=== PATIENT | male | born 1940 | race Caucasian/White ===

== ENCOUNTER → 2017-01-25 | Outpatient (CLI) | payer MEDICARE, OTHER ==
[~2017-01-25] MED LIST: ACTOS30 MG PO; AMOXICILLIN 8751 TAB PO; ASPIRIN E.C. 8181 MG PO; BRILINTA90 MG PO; CARDURA 2MG2 MG PO; DIABETA 2.5MG2.5 MG PO; DIABETA 5MG5 MG/TAB PO; DOXAZOSIN2 MG PO; FLOMAX PO; FLOMAX0.4 MG PO; FLUTICASON0.05 MG/Ac NS; FOLIC ACID0.4 MG PO; GLYBURIDE5 MG PO; GOOD SENSE ASPI81 M1 PO; IRON325 M1 PO; K-1010 MEQ PO; LAMISIL250 MG PO; LASIX20 MG PO; LASIX40 MG PO; LEVOTHYROXIN0.088 MG PO; LIPITOR 40MG TA40 MG PO; METFORMIN500 MG PO; NITROQUICK0.4 MG SL; PRILOSEC 20MG20 MG PO; PRINIVIL20 MG PO; RITE AID ASPIRI81 M1 PO; TOPROL XL 25MG25 MG PO; TYLENOL 325MG325 MG PO; VITAMIN C PURE500 M1 PO; ZOCOR 10MG10 MG PO
== END ==
LOC: LAB 12:20
DX: E11.65 Type 2 diabetes mellitus with hyperglycemia (principal)

== ENCOUNTER → 2017-02-23 | Outpatient (CLI) | payer MEDICARE, OTHER ==
[2015-06-21 10:10] VITALS: BP 125/67
== END ==
LOC: LAB 10:55
DX: Z51.81 Encounter for therapeutic drug level monitoring (principal); Z79.899 Other long term (current) drug therapy

== ENCOUNTER → 2017-04-30 | Outpatient (CLI) | payer MEDICARE, OTHER ==
[2015-06-21 10:10] VITALS: BP 125/67
== END ==
LOC: LAB 11:06
DX: Z51.81 Encounter for therapeutic drug level monitoring (principal); Z79.899 Other long term (current) drug therapy; E11.9 Type 2 diabetes mellitus without complications

== ENCOUNTER → 2017-08-10 | Outpatient (CLI) | payer MEDICARE, OTHER ==
[2015-06-21 10:10] VITALS: BP 125/67
[2017-08-10 11:22] LABS: EOS # 0.3 (0.04-0.40); EOS % 3.8 % (0.0-4.0); HEMATOCRIT 39.3 % (42.0-52.0); HEMOGLOBIN 12.9 g/dL (13.5-18.0); LYMPH# 2.5 (1.50-4.00); MEAN CELL VOLUME 94 fl (78-100); MEAN CORPUSCULAR HEMOGLOBIN 31 pg (27-31); MEAN CORPUSCULAR HGB CONC 33 g/dL (33-37); MEAN PLATELET VOLUME 10.6 fl (7.4-10.4); MONO # 0.6 (0.20-0.80); NEU # 3.3 (1.40-6.50); PLATELET COUNT 177 K/mm3 (130-400); WHITE BLOOD COUNT 6.7 K/mm3 (4.8-10.8)
[2017-08-10 11:43] LABS: ALBUMIN 3.6 g/dL (3.5-5.0); BUN/CREATININE RATIO 32.5 (6.0-26.0); POTASSIUM 4.4 mmol/L (3.6-5.0); TOTAL BILIRUBIN 0.4 mg/dL (0.2-1.3); TOTAL PROTEIN 6.8 g/dL (6.3-8.2)
[2017-08-10 12:40] LABS: ERYTHROCYTE SEDIMENTATION RATE 22 mm/hr (0-20)
[2017-08-10 12:46] LABS: URINE APPEARANCE CLEAR; URINE BILIRUBIN NEGATIVE (NEGATIVE); URINE BLOOD NEGATIVE (NEGATIVE); URINE COLOR YELLOW; URINE GLUCOSE NEGATIVE (NEGATIVE); URINE KETONE NEGATIVE (NEGATIVE); URINE LEUKOCYTE ESTERASE NEGATIVE (NEGATIVE); URINE NITRATE NEGATIVE (NEGATIVE); URINE PROTEIN(semi-quant) TRACE mg/dL (NEGATIVE); URINE UROBILINOGEN NORMAL (NORMAL); URINE WBC 0-1 /hpf (0-3)
[2017-08-10 23:19] LABS: CREATININE OTHER SOURCE 62 mg/dL (())
[2017-08-10 23:28] LABS: TESTOSTERONE 257 ng/dL (221-716)
== END ==
LOC: LAB 11:00
PROVIDERS: Internal Medicine
DX: I10 Essential (primary) hypertension (principal); E11.9 Type 2 diabetes mellitus without complications; Z12.5 Encounter for screening for malignant neoplasm of prostate; Z12.11 Encounter for screening for malignant neoplasm of colon; E78.5 Hyperlipidemia, unspecified; N52.9 Male erectile dysfunction, unspecified; R20.2 Paresthesia of skin; E03.4 Atrophy of thyroid (acquired)

== ENCOUNTER → 2017-08-27 | Outpatient (CLI) | payer MEDICARE, OTHER ==
[2015-06-21 10:10] VITALS: BP 125/67
== END ==
LOC: LAB 11:31
DX: M25.552 Pain in left hip (principal); R93.7 Abnormal findings on diagnostic imaging of other parts of musculoskeletal system

== ENCOUNTER → 2017-11-18 | Outpatient (CLI) | payer MEDICARE, OTHER ==
[2015-06-21 10:10] VITALS: BP 125/67
[2017-11-18 17:49] LABS: BUN/CREATININE RATIO 37.1 (6.0-26.0); CALCIUM 8.9 mg/dL (8.4-10.2); POTASSIUM 4.5 mmol/L (3.6-5.0); TOTAL BILIRUBIN 0.4 mg/dL (0.2-1.3); TOTAL PROTEIN 7.3 g/dL (6.3-8.2)
[2017-11-22 18:02] LABS: TESTOSTERONE 153 ng/dL (221-716)
== END ==
LOC: LAB 17:08
PROVIDERS: Internal Medicine
DX: E11.9 Type 2 diabetes mellitus without complications (principal); I25.5 Ischemic cardiomyopathy; G47.33 Obstructive sleep apnea (adult) (pediatric); N52.9 Male erectile dysfunction, unspecified

== ENCOUNTER → 2017-11-26 | Outpatient (CLI) | payer MEDICARE, OTHER ==
[2015-06-21 10:10] VITALS: BP 125/67
[2017-11-26 10:42] LABS: CALCIUM 8.7 mg/dL (8.4-10.2); POTASSIUM 4.5 mmol/L (3.6-5.0)
== END ==
LOC: LAB 09:25
PROVIDERS: Internal Medicine
DX: I25.5 Ischemic cardiomyopathy (principal); E11.9 Type 2 diabetes mellitus without complications

== ENCOUNTER → 2017-12-24 | Outpatient (CLI) | payer MEDICARE, OTHER ==
[2015-06-21 10:10] VITALS: BP 125/67
[2017-12-24 11:21] LABS: BUN/CREATININE RATIO 31.6 (6.0-26.0); CALCIUM 8.8 mg/dL (8.4-10.2); POTASSIUM 4.6 mmol/L (3.6-5.0)
== END ==
LOC: LAB 09:30
PROVIDERS: Internal Medicine
DX: I25.5 Ischemic cardiomyopathy (principal); E11.9 Type 2 diabetes mellitus without complications

== ENCOUNTER → 2018-01-04 | Outpatient (CLI) | payer MEDICARE, OTHER ==
[2015-06-21 10:10] VITALS: BP 125/67
[2018-01-04 15:41] LABS: EOS # 0.2 (0.04-0.40); EOS % 3.2 % (0.0-4.0); HEMATOCRIT 40.3 % (42.0-52.0); LYMPH# 2.5 (1.50-4.00); MEAN CELL VOLUME 96 fl (78-100); MEAN CORPUSCULAR HEMOGLOBIN 31 pg (27-31); MEAN CORPUSCULAR HGB CONC 32 g/dL (33-37); MEAN PLATELET VOLUME 11.2 fl (7.4-10.4); MONO # 0.7 (0.20-0.80); NEU # 3.9 (1.40-6.50); PLATELET COUNT 150 K/mm3 (130-400); RED BLOOD COUNT 4.19 M/mm3 (4.20-5.60); RED CELL DISTRIBUTION WIDTH 13.9 % (11.5-14.5); WHITE BLOOD COUNT 7.4 K/mm3 (4.8-10.8)
[2018-01-04 15:53] LABS: BUN/CREATININE RATIO 36.1 (6.0-26.0); CALCIUM 8.8 mg/dL (8.4-10.2); POTASSIUM 4.6 mmol/L (3.6-5.0)
== END ==
LOC: LAB 15:15
PROVIDERS: Nurse Practitioner Family
DX: M79.605 Pain in left leg (principal); L03.116 Cellulitis of left lower limb

== ENCOUNTER → 2018-02-01 | Outpatient (CLI) | payer MEDICARE, OTHER ==
[2015-06-21 10:10] VITALS: BP 125/67
[2018-02-01 16:05] LABS: EOS # 0.1 (0.04-0.40); EOS % 1.7 % (0.0-4.0); HEMATOCRIT 39.3 % (42.0-52.0); HEMOGLOBIN 12.5 g/dL (13.5-18.0); LYMPH# 3.8 (1.50-4.00); MEAN CELL VOLUME 97 fl (78-100); MEAN CORPUSCULAR HEMOGLOBIN 31 pg (27-31); MEAN CORPUSCULAR HGB CONC 32 g/dL (33-37); MEAN PLATELET VOLUME 11.8 fl (7.4-10.4); MONO # 0.8 (0.20-0.80); NEU # 3.6 (1.40-6.50); PLATELET COUNT 221 K/mm3 (130-400); RED BLOOD COUNT 4.06 M/mm3 (4.20-5.60); RED CELL DISTRIBUTION WIDTH 14.5 % (11.5-14.5); WHITE BLOOD COUNT 8.4 K/mm3 (4.8-10.8)
[2018-02-01 16:08] LABS: BUN/CREATININE RATIO 43.6 (6.0-26.0); CALCIUM 8.9 mg/dL (8.4-10.2); POTASSIUM 4.9 mmol/L (3.6-5.0)
== END ==
LOC: LAB 10:23
PROVIDERS: Internal Medicine
DX: M79.605 Pain in left leg (principal); L03.116 Cellulitis of left lower limb; I25.5 Ischemic cardiomyopathy

== ENCOUNTER → 2018-02-10 | Outpatient (CLI) | payer MEDICARE, OTHER ==
[2015-06-21 10:10] VITALS: BP 125/67
[2018-02-10 10:32] LABS: BUN/CREATININE RATIO 37.9 (6.0-26.0); CALCIUM 8.9 mg/dL (8.4-10.2)
== END ==
LOC: LAB 09:58
PROVIDERS: Internal Medicine
DX: I25.5 Ischemic cardiomyopathy (principal); E11.9 Type 2 diabetes mellitus without complications

== ENCOUNTER → 2018-02-22 | Outpatient (CLI) | payer MEDICARE, OTHER ==
[2015-06-21 10:10] VITALS: BP 125/67
[2018-02-22 10:05] LABS: EOS # 0.3 (0.04-0.40); EOS % 3.1 % (0.0-4.0); HEMATOCRIT 37.8 % (42.0-52.0); HEMOGLOBIN 12.3 g/dL (13.5-18.0); LYMPH# 2.8 (1.50-4.00); MEAN CELL VOLUME 96 fl (78-100); MEAN CORPUSCULAR HEMOGLOBIN 31 pg (27-31); MEAN CORPUSCULAR HGB CONC 33 g/dL (33-37); MEAN PLATELET VOLUME 10.2 fl (7.4-10.4); MONO # 0.7 (0.20-0.80); NEU # 4.5 (1.40-6.50); PLATELET COUNT 174 K/mm3 (130-400); RED BLOOD COUNT 3.92 M/mm3 (4.20-5.60); RED CELL DISTRIBUTION WIDTH 14.8 % (11.5-14.5); WHITE BLOOD COUNT 8.3 K/mm3 (4.8-10.8)
[2018-02-22 10:20] LABS: ALBUMIN 3.8 g/dL (3.5-5.0); CALCIUM 8.7 mg/dL (8.4-10.2); POTASSIUM 4.8 mmol/L (3.6-5.0); TOTAL BILIRUBIN 0.3 mg/dL (0.2-1.3); TOTAL PROTEIN 7.1 g/dL (6.3-8.2)
[2018-02-22 11:07] LABS: ERYTHROCYTE SEDIMENTATION RATE 22 mm/hr (0-20)
[2018-02-22 23:13] LABS: FOLLICLE STIMULATING HORMONE 13.7 mIU/mL (1.0-12.0); LUTENIZING HORMONE 10.9 mIU/mL (0.6-12.1); PROLACTIN 8.8 ng/mL (3.5-19.4); TESTOSTERONE 177 ng/dL (221-716)
== END ==
LOC: LAB 09:19
PROVIDERS: Internal Medicine
DX: E11.9 Type 2 diabetes mellitus without complications (principal); I25.10 Atherosclerotic heart disease of native coronary artery without angina pectoris; E29.1 Testicular hypofunction; R20.2 Paresthesia of skin

== ENCOUNTER → 2018-04-12 | Day surgery (SDC) | payer MEDICARE, OTHER ==
[2015-06-21 10:10] VITALS: BP 125/67
== END ==
LOC: MSO 07:32
DX: Z12.11 Encounter for screening for malignant neoplasm of colon (principal); Z80.0 Family history of malignant neoplasm of digestive organs; I11.0 Hypertensive heart disease with heart failure; I50.20 Unspecified systolic (congestive) heart failure; I25.2 Old myocardial infarction; Z79.82 Long term (current) use of aspirin; Z79.84 Long term (current) use of oral hypoglycemic drugs; E11.9 Type 2 diabetes mellitus without complications; Z79.899 Other long term (current) drug therapy; N40.0 Benign prostatic hyperplasia without lower urinary tract symptoms
CPT/HCPCS: G0105; 00812; J2704; J7030

== ENCOUNTER → 2018-05-10 | Outpatient (CLI) | payer MEDICARE, OTHER ==
[2015-06-21 10:10] VITALS: BP 125/67
== END ==
LOC: RAD 15:25
DX: M54.17 Radiculopathy, lumbosacral region (principal); M48.07 Spinal stenosis, lumbosacral region; M51.86 Other intervertebral disc disorders, lumbar region; M47.895 Other spondylosis, thoracolumbar region

== ENCOUNTER 2018-05-23 11:00 | Emergency (ER) | payer MEDICARE, OTHER ==
[~2018-05-23] VITALS: Ht 177.8 cm; Wt 136.4 kg
[~2018-05-23 11:00] MED LIST changes: -GLIMEPIRIDE4 MG PO; -METFORMIN ER500 MG PO; -MIRALAX 255 GM255 GM PO; -NAPROXEN375 M1 PO; -NORCO 325 MG-51 TA1 PO; -ZESTRIL5 M1 PO
[2018-05-23] MEDS ORDERED: GLIMEPIRIDE4 MG PO (11:12)
[2018-05-23] MEDS ORDERED: METFORMIN ER500 MG PO (11:12)
[2018-05-23] MEDS ORDERED: ZESTRIL5 M1 PO (11:13)
[2018-05-23] MEDS ORDERED: NAPROXEN375 M1 PO (11:14)
[2018-05-23] MEDS ORDERED: MIRALAX 255 GM255 GM PO (12:36)
[2018-05-23] MEDS ORDERED: NORCO 325 MG-51 TA1 PO (12:36)
[2018-05-23 12:47] VITALS: BP 159/66
== END 2018-05-23 12:41 | disposition home or self-care (01) ==
LOC: ED 11:00
DX: M48.061 Spinal stenosis, lumbar region without neurogenic claudication (principal); M54.16 Radiculopathy, lumbar region; M62.830 Muscle spasm of back; E11.9 Type 2 diabetes mellitus without complications; Z79.84 Long term (current) use of oral hypoglycemic drugs; I11.0 Hypertensive heart disease with heart failure; I50.9 Heart failure, unspecified; E78.5 Hyperlipidemia, unspecified; Z79.82 Long term (current) use of aspirin; Z79.899 Other long term (current) drug therapy
CPT/HCPCS: J2270

== ENCOUNTER → 2018-05-23 | Outpatient (CLI) | payer MEDICARE, OTHER ==
[~2018-05-23] MED LIST changes: +GLIMEPIRIDE4 MG PO; +METFORMIN ER500 MG PO; +MIRALAX 255 GM255 GM PO; +NAPROXEN375 M1 PO; +NORCO 325 MG-51 TA1 PO; +ZESTRIL5 M1 PO
[2018-05-23 11:08] VITALS: BP 197/84
[2018-05-23 12:04] LABS: BUN/CREATININE RATIO 28.3 (6.0-26.0); CALCIUM 9.1 mg/dL (8.4-10.2); POTASSIUM 5.3 mmol/L (3.6-5.0)
== END ==
LOC: LAB 11:00
PROVIDERS: Nurse Practitioner Primary Care
DX: E11.9 Type 2 diabetes mellitus without complications (principal); I25.5 Ischemic cardiomyopathy

== ENCOUNTER → 2018-06-23 | Outpatient (CLI) | payer MEDICARE, OTHER ==
[~2018-06-23] MED LIST changes: +GLIMEPIRIDE4 MG PO; +METFORMIN ER500 MG PO; +MIRALAX 255 GM255 GM PO; +NAPROXEN375 M1 PO; +NORCO 325 MG-51 TA1 PO; +ZESTRIL5 M1 PO
== END ==
LOC: RAD 10:21
DX: M79.662 Pain in left lower leg (principal); R22.42 Localized swelling, mass and lump, left lower limb

== ENCOUNTER → 2018-07-01 | Outpatient (CLI) | payer MEDICARE, OTHER ==
[2018-07-01 11:47] LABS: EOS # 0.3 (0.04-0.40); HEMATOCRIT 31.9 % (42.0-52.0); LYMPH# 1.4 (1.50-4.00); MEAN CELL VOLUME 98 fl (78-100); MEAN CORPUSCULAR HEMOGLOBIN 31 pg (27-31); MEAN CORPUSCULAR HGB CONC 31 g/dL (33-37); MEAN PLATELET VOLUME 9.6 fl (7.4-10.4); MONO # 0.6 (0.20-0.80); NEU # 4.3 (1.40-6.50); PLATELET COUNT 259 K/mm3 (130-400); RED BLOOD COUNT 3.26 M/mm3 (4.20-5.60); RED CELL DISTRIBUTION WIDTH 14.6 % (11.5-14.5); WHITE BLOOD COUNT 6.7 K/mm3 (4.8-10.8)
[2018-07-01 12:01] LABS: ALBUMIN 3.4 g/dL (3.5-5.0); POTASSIUM 4.6 mmol/L (3.6-5.0); TOTAL BILIRUBIN 0.6 mg/dL (0.2-1.3); TOTAL PROTEIN 6.3 g/dL (6.3-8.2)
== END ==
LOC: LAB 11:33
PROVIDERS: Physician Assistant
DX: L03.116 Cellulitis of left lower limb (principal)

== ENCOUNTER → 2018-10-11 | Outpatient (CLI) | payer MEDICARE, OTHER ==
[2018-10-11 11:22] LABS: ALBUMIN 3.9 g/dL (3.5-5.0); CALCIUM 9.2 mg/dL (8.4-10.2); POTASSIUM 4.2 mmol/L (3.6-5.0); TOTAL BILIRUBIN 0.3 mg/dL (0.2-1.3); TOTAL PROTEIN 6.7 g/dL (6.3-8.2)
[2018-10-11 11:23] LABS: EOS # 0.6 (0.04-0.40); HEMATOCRIT 39.7 % (42.0-52.0); HEMOGLOBIN 12.5 g/dL (13.5-18.0); LYMPH# 2.7 (1.50-4.00); MEAN CELL VOLUME 92 fl (78-100); MEAN CORPUSCULAR HEMOGLOBIN 29 pg (27-31); MEAN CORPUSCULAR HGB CONC 32 g/dL (33-37); MEAN PLATELET VOLUME 10.8 fl (7.4-10.4); MONO # 0.7 (0.20-0.80); NEU # 3.4 (1.40-6.50); PLATELET COUNT 232 K/mm3 (130-400); RED BLOOD COUNT 4.34 M/mm3 (4.20-5.60); RED CELL DISTRIBUTION WIDTH 15.1 % (11.5-14.5); WHITE BLOOD COUNT 7.4 K/mm3 (4.8-10.8)
[2018-10-11 11:57] LABS: EOS % 7.8 % (0.0-4.0)
[2018-10-11 12:29] LABS: ERYTHROCYTE SEDIMENTATION RATE 22 mm/hr (0-20)
== END ==
LOC: LAB 10:50
PROVIDERS: Internal Medicine
DX: I50.20 Unspecified systolic (congestive) heart failure (principal); E11.9 Type 2 diabetes mellitus without complications; G47.33 Obstructive sleep apnea (adult) (pediatric)

== ENCOUNTER → 2018-10-27 | Outpatient (CLI) | payer MEDICARE, OTHER ==
[2018-10-27 14:30] LABS: HEMOGLOBIN 13.1 g/dL (13.5-18.0); MEAN CELL VOLUME 91 fl (78-100); MEAN CORPUSCULAR HEMOGLOBIN 29 pg (27-31); MEAN CORPUSCULAR HGB CONC 32 g/dL (33-37); MEAN PLATELET VOLUME 10.7 fl (7.4-10.4); PLATELET COUNT 135 K/mm3 (130-400); RED BLOOD COUNT 4.52 M/mm3 (4.20-5.60); RED CELL DISTRIBUTION WIDTH 17.2 % (11.5-14.5); WHITE BLOOD COUNT 12.5 K/mm3 (4.8-10.8)
[2018-10-27 14:37] LABS: URINE APPEARANCE CLOUDY; URINE BILIRUBIN NEGATIVE (NEGATIVE); URINE BLOOD 50 ery/uL (NEGATIVE); URINE COLOR YELLOW; URINE GLUCOSE NEGATIVE (NEGATIVE); URINE KETONE NEGATIVE (NEGATIVE); URINE LEUKOCYTE ESTERASE 2+ (NEGATIVE); URINE NITRATE POSITIVE (NEGATIVE); URINE PROTEIN(semi-quant) 2+ mg/dL (NEGATIVE); URINE UROBILINOGEN NORMAL (NORMAL)
[2018-10-27 14:38] LABS: URINE WBC >50 /hpf (0-3)
[2018-10-27 14:39] LABS: ALBUMIN 3.8 g/dL (3.5-5.0); CALCIUM 8.9 mg/dL (8.4-10.2); POTASSIUM 4.7 mmol/L (3.6-5.0); TOTAL BILIRUBIN 0.5 mg/dL (0.2-1.3)
[2018-10-27 14:49] LABS: BAND 8 % (0-10); LYMPHOCYTE 11 % (20-51); MONOCYTE 3 % (3-10); NEUTROPHILS 78 % (42-75); OVALOCYTES 1+
== END ==
LOC: LAB 14:18
PROVIDERS: Physician Assistant
DX: J06.9 Acute upper respiratory infection, unspecified (principal); N39.0 Urinary tract infection, site not specified; B99.9 Unspecified infectious disease; J02.9 Acute pharyngitis, unspecified; R05 Cough; R50.9 Fever, unspecified; R39.11 Hesitancy of micturition; R30.0 Dysuria

== ENCOUNTER → 2019-03-06 | Outpatient (CLI) | payer MEDICARE, OTHER ==
[2019-03-06 12:05] LABS: EOS # 0.3 (0.04-0.40); EOS % 3.5 % (0.0-4.0); HEMATOCRIT 39.8 % (42.0-52.0); HEMOGLOBIN 12.5 g/dL (13.5-18.0); LYMPH# 2.1 (1.50-4.00); MEAN CELL VOLUME 95 fl (78-100); MEAN CORPUSCULAR HEMOGLOBIN 30 pg (27-31); MEAN CORPUSCULAR HGB CONC 31 g/dL (33-37); MEAN PLATELET VOLUME 9.9 fl (7.4-10.4); MONO # 0.6 (0.20-0.80); NEU # 4.6 (1.40-6.50); PLATELET COUNT 237 K/mm3 (130-400); RED BLOOD COUNT 4.19 M/mm3 (4.20-5.60); RED CELL DISTRIBUTION WIDTH 13.2 % (11.5-14.5); WHITE BLOOD COUNT 7.6 K/mm3 (4.8-10.8)
[2019-03-06 12:58] LABS: ALBUMIN 3.8 g/dL (3.4-4.8); CALCIUM 9.8 mg/dL (8.8-10.0); TOTAL BILIRUBIN 0.2 mg/dL (0.2-1.2); TOTAL PROTEIN 7.1 g/dL (6.2-8.1)
== END ==
LOC: LAB 11:45
PROVIDERS: Internal Medicine
DX: E11.9 Type 2 diabetes mellitus without complications (principal); I25.5 Ischemic cardiomyopathy; E03.9 Hypothyroidism, unspecified

== ENCOUNTER → 2019-06-20 | Outpatient (CLI) | payer MEDICARE, OTHER ==
[2019-06-20 11:55] LABS: EOS # 0.5 (0.04-0.40); HEMATOCRIT 40.9 % (42.0-52.0); HEMOGLOBIN 13.2 g/dL (13.5-18.0); LYMPH# 2.5 (1.50-4.00); MEAN CELL VOLUME 96 fl (78-100); MEAN CORPUSCULAR HEMOGLOBIN 31 pg (27-31); MEAN CORPUSCULAR HGB CONC 32 g/dL (33-37); MEAN PLATELET VOLUME 9.8 fl (7.4-10.4); MONO # 0.7 (0.20-0.80); NEU # 4.2 (1.40-6.50); PLATELET COUNT 191 K/mm3 (130-400); RED BLOOD COUNT 4.27 M/mm3 (4.20-5.60); RED CELL DISTRIBUTION WIDTH 14.4 % (11.5-14.5)
[2019-06-20 11:59] LABS: EOS % 6.5 % (0.0-4.0)
[2019-06-20 12:03] LABS: ALBUMIN 3.9 g/dL (3.4-4.8)
[2019-06-20 12:04] LABS: POTASSIUM 4.8 mmol/L (3.5-5.1)
[2019-06-20 12:05] LABS: CALCIUM 8.9 mg/dL (8.3-10.5)
[2019-06-20 12:08] LABS: TOTAL BILIRUBIN 0.3 mg/dL (0.2-1.2)
== END ==
LOC: LAB 11:39
PROVIDERS: Internal Medicine
DX: E11.9 Type 2 diabetes mellitus without complications (principal); I25.5 Ischemic cardiomyopathy; E03.9 Hypothyroidism, unspecified

== ENCOUNTER 2019-08-04 10:55 | Emergency (ER) | payer MEDICARE, OTHER ==
[2019-08-04] MEDS ORDERED: ZOLPIDEM TART10 MG PO (11:04)
[2019-08-04] MEDS ORDERED: FUROSEMIDE40 MG (11:05)
[2019-08-04] MEDS ORDERED: METOPROLOL SUCC50 M1 PO (11:06)
[2019-08-04] MEDS ORDERED: GLIMEPIRIDE1 MG PO (11:07)
[2019-08-04] MEDS ORDERED: GLUCOPHAGE PO (11:07)
[2019-08-04 11:42] LABS: EOS # 0.6 (0.04-0.40); EOS % 7.8 % (0.0-4.0); HEMATOCRIT 40.2 % (42.0-52.0); HEMOGLOBIN 12.8 g/dL (13.5-18.0); LYMPH# 2.3 (1.50-4.00); MEAN CELL VOLUME 95 fl (78-100); MEAN CORPUSCULAR HEMOGLOBIN 30 pg (27-31); MEAN CORPUSCULAR HGB CONC 32 g/dL (33-37); MEAN PLATELET VOLUME 9.8 fl (7.4-10.4); MONO # 0.8 (0.20-0.80); PLATELET COUNT 208 K/mm3 (130-400); RED BLOOD COUNT 4.22 M/mm3 (4.20-5.60); RED CELL DISTRIBUTION WIDTH 13.6 % (11.5-14.5); WHITE BLOOD COUNT 7.8 K/mm3 (4.8-10.8)
[2019-08-04 11:56] LABS: ALBUMIN 3.7 g/dL (3.4-4.8); POTASSIUM 4.3 mmol/L (3.5-5.1)
[2019-08-04 12:00] LABS: TOTAL BILIRUBIN 0.2 mg/dL (0.2-1.2)
[2019-08-04] MEDS ORDERED: ZITHROMAX 250M250 MG PO (12:18)
[2019-08-04] MEDS ORDERED: MUCINEX DM 60 M1 TER PO (12:18)
[2019-08-04] MEDS ORDERED: CEFDINIR300 MG PO (12:18)
[2019-08-04 12:34] VITALS: BP 127/76
== END 2019-08-04 12:23 | disposition home or self-care (01) ==
LOC: ED 10:55
PROVIDERS: Nurse Practitioner Primary Care
DX: J18.9 Pneumonia, unspecified organism (principal); I11.0 Hypertensive heart disease with heart failure; I50.9 Heart failure, unspecified; I25.2 Old myocardial infarction; I25.10 Atherosclerotic heart disease of native coronary artery without angina pectoris; E11.42 Type 2 diabetes mellitus with diabetic polyneuropathy; Z79.84 Long term (current) use of oral hypoglycemic drugs; Z79.82 Long term (current) use of aspirin; Z98.890 Other specified postprocedural states

== ENCOUNTER 2019-11-03 10:13 | Emergency (ER) | payer MEDICARE, OTHER ==
[~2019-11-03 10:13] MED LIST changes: +CEFDINIR300 MG PO; +FUROSEMIDE40 MG; +GLIMEPIRIDE1 MG PO; +GLUCOPHAGE PO; +METOPROLOL SUCC50 M1 PO; +MUCINEX DM 60 M1 TER PO; +ZITHROMAX 250M250 MG PO; +ZOLPIDEM TART10 MG PO
[2019-11-03 10:46] LABS: ALBUMIN 3.7 g/dL (3.4-4.8)
[2019-11-03 10:47] LABS: POTASSIUM 4.4 mmol/L (3.5-5.1)
[2019-11-03 10:48] LABS: CALCIUM 8.9 mg/dL (8.3-10.5)
[2019-11-03 10:49] LABS: TOTAL PROTEIN 6.7 g/dL (6.2-8.1)
[2019-11-03 10:51] LABS: TOTAL BILIRUBIN 0.6 mg/dL (0.2-1.2)
[2019-11-03 10:55] LABS: EOS # 0.5 (0.04-0.40); EOS % 5.2 % (0.0-4.0); HEMOGLOBIN 12.8 g/dL (13.5-18.0); LYMPH# 1.9 (1.50-4.00); MEAN CELL VOLUME 96 fl (78-100); MEAN CORPUSCULAR HEMOGLOBIN 30 pg (27-31); MEAN CORPUSCULAR HGB CONC 31 g/dL (33-37); MEAN PLATELET VOLUME 10.6 fl (7.4-10.4); MONO # 0.8 (0.20-0.80); NEU # 6.7 (1.40-6.50); PLATELET COUNT 191 K/mm3 (130-400); RED BLOOD COUNT 4.27 M/mm3 (4.20-5.60); RED CELL DISTRIBUTION WIDTH 13.8 % (11.5-14.5)
[2019-11-03] MEDS ORDERED: IPRATROPIUM BROM3 M1 IH (11:16)
[2019-11-03] MEDS ORDERED: PREDNISONE20 M1 PO (11:16)
[2019-11-03] MEDS ORDERED: ROBITUSSIN30 MG/5 ML PO (11:16)
[2019-11-03] MEDS ORDERED: CEFDINIR300 MG PO (11:16)
[2019-11-03 11:23] VITALS: BP 135/86
== END 2019-11-03 11:24 | disposition home or self-care (01) ==
LOC: ED 10:13
PROVIDERS: Nurse Practitioner Primary Care
DX: J20.9 Acute bronchitis, unspecified (principal); I11.0 Hypertensive heart disease with heart failure; I50.9 Heart failure, unspecified; I25.10 Atherosclerotic heart disease of native coronary artery without angina pectoris; I25.2 Old myocardial infarction; E11.9 Type 2 diabetes mellitus without complications; E78.5 Hyperlipidemia, unspecified; J44.9 Chronic obstructive pulmonary disease, unspecified; E03.9 Hypothyroidism, unspecified; Z79.82 Long term (current) use of aspirin; Z79.84 Long term (current) use of oral hypoglycemic drugs; Z95.5 Presence of coronary angioplasty implant and graft

== ENCOUNTER → 2019-12-19 | Outpatient (CLI) | payer MEDICARE, OTHER ==
[~2019-12-19] MED LIST changes: +IPRATROPIUM BROM3 M1 IH; +PREDNISONE20 M1 PO; +ROBITUSSIN30 MG/5 ML PO
[2019-12-19 11:29] LABS: EOS # 0.2 (0.04-0.40); EOS % 3.1 % (0.0-4.0); HEMATOCRIT 41.7 % (42.0-52.0); HEMOGLOBIN 13.1 g/dL (13.5-18.0); LYMPH# 2.1 (1.50-4.00); MEAN CELL VOLUME 96 fl (78-100); MEAN CORPUSCULAR HEMOGLOBIN 30 pg (27-31); MEAN CORPUSCULAR HGB CONC 31 g/dL (33-37); MEAN PLATELET VOLUME 10.3 fl (7.4-10.4); MONO # 0.5 (0.20-0.80); NEU # 4.7 (1.40-6.50); PLATELET COUNT 214 K/mm3 (130-400); RED BLOOD COUNT 4.36 M/mm3 (4.20-5.60); RED CELL DISTRIBUTION WIDTH 14.1 % (11.5-14.5); WHITE BLOOD COUNT 7.6 K/mm3 (4.8-10.8)
[2019-12-19 11:55] LABS: ALBUMIN 3.9 g/dL (3.4-4.8); POTASSIUM 4.3 mmol/L (3.5-5.1)
[2019-12-19 11:56] LABS: CALCIUM 9.2 mg/dL (8.3-10.5)
[2019-12-19 11:58] LABS: TOTAL PROTEIN 6.7 g/dL (6.2-8.1)
[2019-12-19 12:00] LABS: TOTAL BILIRUBIN 0.4 mg/dL (0.2-1.2)
[2019-12-19 12:04] LABS: MAGNESIUM 1.58 mg/dL (1.60-2.60)
== END ==
LOC: LAB 11:14
PROVIDERS: Internal Medicine
DX: E11.9 Type 2 diabetes mellitus without complications (principal); I25.5 Ischemic cardiomyopathy; E03.9 Hypothyroidism, unspecified; I50.22 Chronic systolic (congestive) heart failure

== ENCOUNTER → 2022-03-26 | Outpatient (CLI) | payer MEDICARE, OTHER, MEDICAID ==
[2022-03-26 12:42] LABS: BASO # 0.05 K/mm3 (0.02-0.10); EOS # 0.35 K/mm3 (0.04-0.40); EOS % 4.5 % (0.0-4.0); HEMATOCRIT 39.6 % (42.0-52.0); HEMOGLOBIN 12.7 g/dL (13.5-18.0); LYMPH# 2.21 K/mm3 (1.50-4.00); MEAN CELL VOLUME 96 fl (78-100); MEAN CORPUSCULAR HEMOGLOBIN 31 pg (27-31); MEAN CORPUSCULAR HGB CONC 32 g/dL (33-37); MEAN PLATELET VOLUME 9.2 fl (7.4-10.4); MONO # 0.67 K/mm3 (0.20-0.80); PLATELET COUNT 224 K/mm3 (130-400); RED BLOOD COUNT 4.11 M/mm3 (4.20-5.60); RED CELL DISTRIBUTION WIDTH 13.7 % (11.5-14.5); WHITE BLOOD COUNT 7.7 K/mm3 (4.8-10.8)
[2022-03-26 12:57] LABS: ALBUMIN 3.9 g/dL (3.4-4.8)
[2022-03-26 12:58] LABS: POTASSIUM 4.2 mmol/L (3.5-5.1)
[2022-03-26 12:59] LABS: CALCIUM 9.2 mg/dL (8.3-10.5)
[2022-03-26 13:02] LABS: TOTAL BILIRUBIN 0.3 mg/dL (0.2-1.2)
[2022-03-26 13:07] LABS: MAGNESIUM 2.14 mg/dL (1.60-2.60)
== END ==
LOC: LAB 12:22
PROVIDERS: Internal Medicine
DX: I50.22 Chronic systolic (congestive) heart failure (principal); M54.16 Radiculopathy, lumbar region; E11.9 Type 2 diabetes mellitus without complications; N40.1 Benign prostatic hyperplasia with lower urinary tract symptoms; E03.4 Atrophy of thyroid (acquired)

== ENCOUNTER → 2022-06-19 | Outpatient (CLI) | payer MEDICARE, OTHER, MEDICAID ==
[2022-06-19 13:37] LABS: BASO # 0.03 K/mm3 (0.02-0.10); EOS # 0.04 K/mm3 (0.04-0.40); EOS % 0.4 % (0.0-4.0); HEMATOCRIT 38.8 % (42.0-52.0); HEMOGLOBIN 12.6 g/dL (13.5-18.0); LYMPH# 1.34 K/mm3 (1.50-4.00); MEAN CELL VOLUME 92 fl (78-100); MEAN CORPUSCULAR HEMOGLOBIN 30 pg (27-31); MEAN CORPUSCULAR HGB CONC 33 g/dL (33-37); MEAN PLATELET VOLUME 9.7 fl (7.4-10.4); MONO # 0.96 K/mm3 (0.20-0.80); NEU # 8.47 K/mm3 (1.40-6.50); PLATELET COUNT 232 K/mm3 (130-400); RED BLOOD COUNT 4.22 M/mm3 (4.20-5.60); RED CELL DISTRIBUTION WIDTH 13.4 % (11.5-14.5); WHITE BLOOD COUNT 10.9 K/mm3 (4.8-10.8)
[2022-06-19 14:03] LABS: D-DIMER 1.45 mg/L FEU (0.15-0.50)
[2022-06-19 16:14] LABS: ALBUMIN 3.5 g/dL (3.4-4.8); POTASSIUM 3.3 mmol/L (3.5-5.1); SODIUM 136 mmol/L (136-145)
[2022-06-19 16:16] LABS: CALCIUM 8.6 mg/dL (8.3-10.5)
[2022-06-19 16:17] LABS: TOTAL PROTEIN 6.8 g/dL (6.2-8.1)
[2022-06-19 16:18] LABS: CARBON DIOXIDE 22 mmol/L (23-31)
[2022-06-19 16:19] LABS: TOTAL BILIRUBIN 0.5 mg/dL (0.2-1.2)
[2022-06-19 16:22] LABS: AST-SGOT 10 U/L (5-34)
[2022-06-19 16:23] LABS: ALT/SGPT < 6 U/L (0-55)
[2022-06-19 17:27] LABS: GLUCOSE 299 mg/dL (75-110)
== END ==
LOC: RAD 13:17 → LAB 13:17
PROVIDERS: Nurse Practitioner
DX: M19.032 Primary osteoarthritis, left wrist (principal)